=== PATIENT | female | born 1955 | race Caucasian/White ===

== ENCOUNTER 2021-04-13 12:58 | Emergency (ER) | payer MEDICARE, OTHER ==
[~2021-04-13] VITALS: Ht 168.9 cm; Wt 56.8 kg
[2021-04-13 13:00] VITALS: BP 155/89
[2021-04-13] MEDS ORDERED: LIDOCAINE 1%/EPI 1:100,000 10 ML VIAL. INJ ONE (13:30)
--- NOTE | 2021-04-13 14:05 | PHYS DOC ---
Past History Past Medical History: High Cholesterol, Hyperthyroid Additional Past Medical Histor: hot flashes (KALEN HARVEY APRN) Past Surgical History: Hysterectomy Additional Past Surgical Histo: hemmorhoidectomy (KALEN HARVEY APRN) Alcohol Use: Occasionally (KALEN HARVEY APRN) General Adult EDM: Chief Complaint: LACERATION/AVULSION HPI: HPI: Patient is a 65-year-old female presents with laceration to her right index finger after cutting her finger with hedge clippers. Bleeding is controlled. Patient has full range of motion. Denies being on blood thinners up-to-date on tetanus. Rating pain 5/10. Nuys taking anything prior to arrival for pain. P atient has history of hypothyroidism and hyperlipidemia. (KALEN HARVEY APRN) Review of Systems: Review of Systems: Constitutional: Denies fever or chills Eyes: Denies change in visual acuity HENT: Denies nasal congestion or sore throat Respiratory: Denies cough or shortness of breath Cardiovascular: Denies chest pain or edema GI: Denies abdominal pain, nausea, vomiting, bloody stools or diarrhea : Denies dysuria Musculoskeletal: Denies back pain or joint pain Integument: Laceration to right, index center. Neurologic: Denies headache, focal weakness or sensory changes Endocrine: Denies polyuria or polydipsia Lymphatic: Denies swollen glands Psychiatric: Denies depression or anxiety (KALEN HARVEY APRN) Current Medications: Current Meds: Current Medications Medications (Trade) Dose Ordered Sig/Beth Start Time Stop Time Status Last Admin Dose Admin Acetaminophen/ Hydrocodone Bitart (Lortab 5/325) 1 tab 1X ONCE 04/13/21 14:00 04/13/21 14:01 UNV Lidocaine/ Epinephrine (Xylocaine 1%-Epi 1:100,000) 10 ml 1X ONCE 04/13/21 13:30 04/13/21 13:31 DC (KALEN HARVEY APRN) Allergies: Allergies: Allergies Coded Allergies Type Severity Reaction Last Updated Verified Penicillins Allergy Mild Rash 04/13/21 Yes prednisone Allergy Unknown skin problem 04/13/21 Yes (KALEN HARVEY APRN) Physical Exam: PE: Constitutional: Well developed, well nourished, no acute distress, non-toxic appearance. [] HENT: Normocephalic, atraumatic, bilateral external ears normal, oropharynx moist, no oral exudates, nose normal. [] Eyes: PERRLA, EOMI, conjunctiva normal, no discharge. [] Neck: Normal range of motion, no tenderness, supple, no stridor. [] Cardiovascular:Heart rate regular rhythm, no murmur [] Lungs & Thorax: Bilateral breath sounds clear to auscultation [] Abdomen: Bowel sounds normal, soft, no tenderness, no masses, no pulsatile masses. [] Skin: Warm, dry, no erythema, no rash. [] Back: No tenderness, no CVA tenderness. [] Extremities: No tenderness, no cyanosis, no clubbing, ROM intact, no edema. [] Neurologic: Alert and oriented X 3, normal motor function, normal sensory function, no focal deficits noted. [] Psychologic: Affect normal, judgement normal, mood normal. [] (KALEN HARVEY APRN) Current Patient Data: Vital Signs: Vital Signs Date Time Temp Pulse Resp B/P (MAP) Pulse Ox O2 Delivery O2 Flow Rate FiO2 04/13/21 13:00 98.1 87 16 155/89 (111) 96 Room Air (KALEN HARVEY APRN) EKG: EKG: [] (KALEN HARVEY APRN) Radiology/Procedures: Radiology/Procedures: [] (KALEN HARVEY APRN) Heart Score: C/O Chest Pain: No Risk Factors: Risk Factors: DM, Current or recent (<one month) smoker, HTN, HLP, family history of CAD, obesity. Risk Scores: Score 0 - 3: 2.5% MACE over next 6 weeks - Discharge Home Score 4 - 6: 20.3% MACE over next 6 weeks - Admit for Clinical Observation Score 7 - 10: 72.7% MACE over next 6 weeks - Early Invasive Strategies (KALEN HARVEY APRN) Course & Med Decision Making: Course & Med Decision Making Pertinent Labs and Imaging studies reviewed. (See chart for details) [] 65-year-old female presents with a laceration to her right index finger after cutting with hedge clippers. Bleeding was controlled upon arrival. Hydrocodone 5/325 given for pain. Wound was cleansed. 1% lidocaine with epi used to numb finger. 3, sutures, 50, used to close wound. Patient tolerated procedure well. Instructions given on care. Patient will follow up with her P CP in 5 days to have sutures removed. Patient sent home with a prescription for Keflex. Discussed infection signs with patient. Ibuprofen and Tylenol at home for discomfort. Patient is appreciative and okay with discharge plan. (KALEN HARVEY APRN) Della Disclaimer: Della Disclaimer: This electronic medical record was generated, in whole or in part, using a voice recognition dictation system. (KALEN HARVEY APRN) Laceration Repair Lac Repair Indication: [] Laceration to right, index finger Procedure: The patient was placed in the appropriate position and anesthesia around the laceration. the area was then cleansed. The laceration was closed with 3 sutures, 50. The wound area was then dressed with gauze. Total repaired wound length: 2 cm The patient tolerated the procedure well Complications: No complications. (KALEN HARVEY APRN) Attending Co-Sign The patient was seen and interviewed as well as examined at the bedside. The chart was reviewed. The case was discussed. Agree with the plan of care. (LASHANDA WILSON DO) Departure Departure: Impression: Primary Impression: Laceration Disposition: HOME / SELF CARE / HOMELESS Condition: STABLE Referrals: ANDRES LLAMAS (PCP) Patient Instructions: Laceration Care, Adult, [id number] Additional Instructions: You were seen in the emergency room for a laceration to right index in your. Your wound was cleaned and repaired. Make sure you keep the area clean and dry. Please follow-up with your PCP in 5 days to have sutures removed. Return to the emergency room if you have worsening symptoms or concerns. EMERGENCY DEPARTMENT GENERAL DISCHARGE INSTRUCTIONS Thank you for coming to [facility] (ED) today and trusting us with you care. We trust that you had a positivie experience in our Emergency Department. If you wish to speak to the department management, you may call the director at . YOUR FOLLOW UP INSTRUCTIONS ARE FOLLOWS: 1. Do you have a private Doctor? If you do not have a private doctor, please ask for a resource list of physicians or clinics that may be able to assist you with follow up care. 2. The Emergency Physician has interpreted your x-rays. The X-Ray specialist will also review them. If there is a change in the findings, you will be notified in 48 hours when at all possible. 3. A lab test or culture has been done, your results will be reviewed and you will be notified if you need a change in treatment. ADDITIONAL INSTRUCTIONS AND INFORMATION: 1. Your care today has been supervised by a physician who is specially trained in emergency care. Many problems require more than one evaluation for a complete diagnosis and treatment. We recommend that you schedule your follow up appointment as recommended to ensure complete treatment of you illness or injury. If you are unable to obtain follow up care and continue to have a problem, or if your condition worsens, we recommend that you return to the ED. 2. We are not able to safely determine your condition over the phone nor are we able to give sound medical advice over the phone. For these safety reasons, if you call for medical advice we will ask you to come to the ED for further evaluation. 3. If you have any questions regarding these discharge instructions please call the ED at [phone]. SAFETY INFORMATION: In the interest of safety, wellness, and injury prevention; we encourage you to wear your sealbelt, if you smoke; quite smoking, and we encourage family to use a protective helmet for bicycling and other sporting events that present an increased risk for head injury. IF YOUR SYMPTOMS WORSEN OR NEW SYMPTOMS DEVELOP, OR YOU HAVE CONCERNS ABOUT YOUR CONDITION; OR IF YOUR CONDITION WORSENS WHILE YOU ARE WAITING FOR YOUR FOLLOW UP APPOINTMENT; EITHER CONTACT YOUR PRIMARY CARE DOCTOR, THE PHYSICIAN WHOSE NAME AND NUMBER YOU WERE GIVEN, OR RETURN TO THE ED IMMEDIATELY. Scripts Cephalexin (CEPHALEXIN) 500 Mg Tablet 1 TAB PO BID for laceration for 5 Days, #10 TAB Prov: KALEN HARVEY APRN 04/13/21 KALEN HARVEY APRN Apr 13, 2021 14:05 LASHANDA WILSON DO Apr 14, 2021 06:29
[2021-04-13] MEDS ORDERED: HYDROcodone/APAP 5/325MG 1 TAB TABLET PO ONE (14:15)
[2021-04-13] MEDS ORDERED: CEPH500T PO (15:07)
== END 2021-04-13 15:18 | disposition home or self-care (01) ==
LOC: ER 12:58
DX: S61.210A Laceration without foreign body of right index finger without damage to nail, initial encounter (principal); E78.5 Hyperlipidemia, unspecified; Z90.710 Acquired absence of both cervix and uterus; Z88.0 Allergy status to penicillin; Z88.6 Allergy status to analgesic agent; W26.8XXA Contact with other sharp object(s), not elsewhere classified, initial encounter; Y93.89 Activity, other specified; Y92.89 Other specified places as the place of occurrence of the external cause; Y99.8 Other external cause status
CPT/HCPCS: 12001; 99283-25

== ENCOUNTER 2021-11-10 17:18 | Emergency (ER) | payer MEDICARE, OTHER ==
[~2021-11-10] VITALS: Ht 168.9 cm; Wt 60.9 kg
[~2021-11-10 17:18] MED LIST: CEPH500T PO
--- NOTE | 2021-11-10 17:58 | EKG ---
[address] [address] Test Date: 2021-11-10 Test Time: 17:52:58 Pat Name: CHESTER GUTIÉRREZ Department: Room: Gender: F Press Supervisor: LAURA : 1955 Requested By: ROSALEE DOWNS Order Number: [id number] Reading MD: Measurements Intervals [place] Rate: 81 P: 38 NV: 140 QRS: -18 QRSD: 86 T: 43 QT: 364 QTc: 423 Interpretive Statements SINUS RHYTHM LEFTWARD AXIS OTHERWISE NORMAL ECG RI6.02 No previous ECG available for comparison
--- NOTE | 2021-11-10 18:06 | PHYS DOC ---
Past History Past Medical History: High Cholesterol, Hyperthyroid Additional Past Medical Histor: hot flashes (ROSALEE DOWNS APRN) Past Surgical History: Hysterectomy, Other Additional Past Surgical Histo: hemmorhoidectomy (ROSALEE DOWNS APRN) Alcohol Use: Occasionally (ROSALEE DOWNS APRN) General Adult EDM: Chief Complaint: ELBOW PROBLEM HPI: HPI: Patient is a 65-year-old female who presents to the emergency department for full complaints. She reports that she was moving a lot of furniture, new microwave and taking down her Sumit tree. She states that she woke up Thursday morning with pain in her right elbow. She states that she was driving with her to pick remover her daughter and Ganesh when she started feeling worsening of the pain in her right elbow. She also reports that she got sweaty and she pulled over on the side of the road. She reports that her hands felt like they got locked up and she started experiencing palpitations. She called the ambulance and they performed a EKG. She went to the nearest hospital and the palpitations resolved while waiting in the waiting room and she left AGAINST MEDICAL ADVICE. Patient reports that her right elbow pain has worsened and there is increased redness and swelling to the joint. She is also reporting that she had palpitations that started this afternoon but have resolved. She cannot estimate how long the palpitations usually last because the time does vary. She describes the pain in her elbow as a "on fire" sensation. She is not currently reporting any pain but reports that the pain is worse with movement. Patient has a history of high cholesterol and anxiety. She takes estrogen for hot flashes. She denies any history of leg swelling or DVTs or PEs. Patient denies chest pain, shortness of breath, fever, nausea, vomiting, dizziness, cough, IV lines, surgical procedures to her right arm, injuries. (ROSALEE DOWNS APRN) Review of Systems: Review of Systems: Constitutional: negative unless reported in HPI Eyes: negative unless reported in HPI HENT: negative unless reported in HPI Respiratory: negative unless reported in HPI Cardiovascular: negative unless reported in HPI GI: negative unless reported in HPI : negative unless reported in HPI Musculoskeletal: negative unless reported in HPI Integument: negative unless reported in HPI Neurologic: negative unless reported in HPI Endocrine: negative unless reported in HPI Lymphatic: negative unless reported in HPI Psychiatric: negative unless reported in HPI (ROSALEE DOWNS APRN) Allergies: Allergies: Allergies Coded Allergies Type Severity Reaction Last Updated Verified Penicillins Allergy Mild Rash 04/13/21 Yes prednisone Allergy Unknown skin problem 04/13/21 Yes (ROSALEE DOWNS APRN) Physical Exam: PE: Constitutional: Well developed, well nourished, no acute distress, non-toxic appearance. [] HENT: Normocephalic, atraumatic, bilateral external ears normal, oropharynx moist, no oral exudates, nose normal. [] Eyes: PERRL, EOMI, conjunctiva normal, no discharge. [] Neck: Normal range of motion, no stridor Cardiovascular:Heart rate regular rhythm, no murmur [] Lungs & Thorax: Bilateral breath sounds clear to auscultation [] Abdomen: Bowel sounds normal, soft, no tenderness, no masses, no pulsatile masses. [] Skin: Warm, dry, no erythema, no rash. [] Back: Normal range of motion Extremities: No tenderness, no cyanosis, no clubbing, ROM intact, no edema. [] Right elbow: Swelling redness and warmth noted to right elbow, range of motion intact, neuro intact, no open wounds Neurologic: Alert and oriented X 3, normal motor function, normal sensory function, no focal deficits noted. [] Psychologic: Affect normal, judgement normal, mood normal. [] (ROSALEE DOWNS APRN) Current Patient Data: Labs: Laboratory Tests Test 11/10/21 18:40 White Blood Count 6.1 x10^3/uL Red Blood Count 3.81 x10^6/uL Hemoglobin 12.5 g/dL Hematocrit 37.0 % Mean Corpuscular Volume 97 fL Mean Corpuscular Hemoglobin 33 pg Mean Corpuscular Hemoglobin Concent 34 g/dL Red Cell Distribution Width 12.7 % Platelet Count 263 x10^3/uL Neutrophils (%) (Auto) 55 % Lymphocytes (%) (Auto) 31 % Monocytes (%) (Auto) 12 % Eosinophils (%) (Auto) 1 % Basophils (%) (Auto) 1 % Neutrophils # (Auto) 3.3 x10^3uL Lymphocytes # (Auto) 1.9 x10^3/uL Monocytes # (Auto) 0.7 x10^3/uL Eosinophils # (Auto) 0.0 x10^3/uL Basophils # (Auto) 0.0 x10^3/uL D-Dimer (Myrna) 1.20 mg/L Urine Collection Type Clean catch Urine Color Yellow Urine Clarity Clear Urine pH 5.5 Urine Specific [place] >=1.030 Urine Protein 30 mg/dl Urine Glucose (UA) Neg mg/dL Urine Ketones (Stick) 15 mg/dL Urine Blood Neg Urine Nitrite Neg Urine Bilirubin Small Urine Urobilinogen Dipstick 1.0 mg/dL Urine Leukocyte Esterase Trace Urine RBC 0 /HPF Urine WBC 5-10 /HPF Urine Squamous Epithelial Cells Few /LPF Urine Bacteria Few /HPF Sodium Level 140 mmol/L Potassium Level 3.9 mmol/L Chloride Level 101 mmol/L Carbon Dioxide Level 29 mmol/L Anion Gap 10 Blood Urea Nitrogen 12 mg/dL Creatinine 0.8 mg/dL Estimated GFR (Cockcroft-Gault) 71.8 BUN/Creatinine Ratio 15 Glucose Level 83 mg/dL Calcium Level 9.0 mg/dL Total Bilirubin 0.3 mg/dL Aspartate Amino Transf (AST/SGOT) 25 U/L Alanine Aminotransferase (ALT/SGPT) 37 U/L Alkaline Phosphatase 70 U/L Troponin I High Sensitivity 5 ng/L Total Protein 7.4 g/dL Albumin 4.0 g/dL Albumin/Globulin Ratio 1.2 Urine Opiates Screen Neg Urine Methadone Screen Neg Urine Barbiturates Neg Urine Phencyclidine Screen Neg Urine Amphetamine/Methamphetamine Neg Urine Benzodiazepines Screen Neg Urine Cocaine Screen Neg Urine Cannabinoids Screen Neg Urine Ethyl Alcohol Neg Current Medications Medications (Trade) Dose Ordered Sig/Beth Route PRN Reason Start Time Stop Time Status Last Admin Dose Admin Iohexol (Omnipaque 350 Mg/ml) 100 ml 1X ONCE IV 11/10/21 20:30 11/10/21 20:31 DC 11/10/21 20:54 (ROSALEE DOWNS APRN) EKG: EKG: EKG performed by ER staff at 1752 shows sinus rhythm with a rate of 81, QTc of 423, no STEMI read by Dr. Betts. [] (ROSALEE DOWNS APRN) Radiology/Procedures: Radiology/Procedures: []PROCEDURE: CT ANGIOGRAPHY CHEST Study: CT CHEST WITH CONTRAST - PULMONARY ANGIOGRAM History: Chest pain, palpitations Comparison: Chest radiograph 11/10/2021 Technique: Helical CT of the chest performed after the administration of 100 mL Omnipaque 350 intravenous contrast and timed for angiographic evaluation of the pulmonary arteries per PE protocol. Coronal and sagittal 3D MIP reformations were obtained. One or more of the following individualized dose reduction techniques were utilized for this examination: 1. Automated exposure control 2. Adjustment of the mA and/or kV according to patient size 3. Use of iterative reconstruction technique. Findings: Pulmonary Arteries: Contrast bolus is adequate. There is no acute pulmonary embolism. Heart/Systemic Vasculature: The heart is normal in size. No pericardial effusion. Thoracic aorta is normal in caliber. No aortic dissection. Mediastinum: No lymphadenopathy. Lungs: The lungs are clear. No pleural effusion or pneumothorax. Central airways are clear. Neck/Axilla/Body Wall: No axillary lymphadenopathy. There is a calcification in the left thyroid lobe. Upper Abdomen: Liver is diffusely decreased in attenuation. Bones: No acute osseous abnormality. IMPRESSION: 1. No acute pulmonary embolism. 2. Hepatic steatosis. Electronically signed by: Jazmin Mai MD (11/10/2021 9:32 PM) [id number] DICTATED AND SIGNED BY: JAZMIN MAI MD DATE: 11/10/212117 CC: ROSALEE DOWNS APRN; ANDRES LLAMAS L ~MTH0 0 PROCEDURE: ELBOW RIGHT 3V Chest AP portable at 1804: Reason for examination: Chest pain. Feels like heart skips a beat. Heart size is normal. Mediastinum is unremarkable. Lung chavarria are clear. No acute bony abnormalities are seen. IMPRESSION: No acute cardiopulmonary disease evident. Right elbow 3 views: Reason for examination: Right elbow pain and swelling with tightness. No acute fracture or dislocation is seen. The bone density is normal. No abnormal periosteal reaction is seen. Joint spaces are maintained. No joint effusion is evident. IMPRESSION: No acute abnormality evident at the right elbow. Electronically signed by: Le Mccain MD (11/10/2021 6:20 PM) [facility] DICTATED AND SIGNED BY: LE MCCAIN MD DATE: 11/10/211817 CC: ROSALEE DOWNS APRN; ANDRES LLAMAS L ~MTH0 0 PROCEDURE: PORTABLE CHEST 1V Chest AP portable at 1804: Reason for examination: Chest pain. Feels like heart skips a beat. Heart size is normal. Mediastinum is unremarkable. Lung chavarria are clear. No acute bony abnormalities are seen. IMPRESSION: No acute cardiopulmonary disease evident. Right elbow 3 views: Reason for examination: Right elbow pain and swelling with tightness. No acute fracture or dislocation is seen. The bone density is normal. No abnormal periosteal reaction is seen. Joint spaces are maintained. No joint effusion is evident. IMPRESSION: No acute abnormality evident at the right elbow. Electronically signed by: Le Mccain MD (11/10/2021 6:20 PM) [facility] DICTATED AND SIGNED BY: LE MCCAIN MD DATE: 11/10/211817 CC: ROSALEE DOWNS APRN; MURIELANDRES Faraz ~MTH0 0 (ROSALEE DOWNS APRN) Heart Score: C/O Chest Pain: No Risk Factors: Risk Factors: DM, Current or recent (<one month) smoker, HTN, HLP, family history of CAD, obesity. Risk Scores: Score 0 - 3: 2.5% MACE over next 6 weeks - Discharge Home Score 4 - 6: 20.3% MACE over next 6 weeks - Admit for Clinical Observation Score 7 - 10: 72.7% MACE over next 6 weeks - Early Invasive Strategies (ROSALEE DOWNS APRN) Course & Med Decision Making: Course & Med Decision Making Pertinent Labs and Imaging studies reviewed. (See chart for details) [] Patient presents to the emergency department for multiple complaints. Patient is reporting right elbow pain, redness and swelling that started Thursday following moving several heavy objects. She denies any wounds or insect bites. She is not currently reporting any pain. She denies any history of DVT or PE, leg swelling. She does have a history of high cholesterol and does take estrogen for hot flashes. Patient is also reporting palpitations that have been intermittent for the last 3 days. She is not currently experiencing any palpitations. She is not having any chest pain, shortness of breath, nausea, vomiting, dizziness. Work-up in the ER consisted of blood work, EKG, chest x- ray and x-ray of right elbow. CBC, CMP, troponin, UDS were negative. Imaging of chest, elbow negative. Patient had an elevated D-dimer therefore CTA was performed. CTA was negative for any pulmonary embolism. Urinalysis did show a urinary tract infection and patient will be treated with an antibiotic. Due to the appearance of the right elbow with redness, warmth, swelling patient will be treated for cellulitis. Patient continues to be free of palpitations, shortness of breath, chest pain, dizziness, nausea, vomiting. Patient advised to follow-up with primary care provider. I discussed with patient all findings and diagnostic testing as well as the need to follow-up with PCP for further evaluation and treatment or return to the ER if any new or worsening symptoms. Strict return precautions were also discussed at length. Patient voiced understanding and agreement with the plan. Patient is hemodynamically stable at the time of disposition. (ROSALEE DOWNS APRN) Dragon Disclaimer: Dragon Disclaimer: This electronic medical record was generated, in whole or in part, using a voice recognition dictation system. (ROSALEE DOWNS APRN) Departure Departure: Impression: Primary Impression: Palpitations Additional Impressions: Urinary tract infection Qualified Codes: N30.00 - Acute cystitis without hematuria Cellulitis Qualified Codes: L03.113 - Cellulitis of right upper limb Disposition: HOME / SELF CARE / HOMELESS Condition: GOOD Referrals: ANDRES LLAMAS (PCP) Patient Instructions: Cellulitis, [id number], Palpitations, [id number], Urinary Tract Infection Additional Instructions: You were seen in the emergency department today for palpitations as well as swelling and pain to your right elbow. X-ray was performed of your chest and right elbow that showed no acute findings. The CT scan of your chest to rule out a blood clot in your lungs showed no acute findings. Your blood work was unremarkable. Your urine did show a urinary tract infection. This will be treated with an antibiotic. Please start and finish the antibiotic completely. Increase your fluids and avoid any bladder irritants like caffeine, sugary beverages, and alcohol. It is possible that the redness, warmth and swelling to your right elbow is cellulitic or skin infection this should be treated with the same antibiotic that we will treat your urinary tract infection. Take tylenol and ibuprofen for pain. If the redness/warmth/swelling does not improve after a couple of days of the antibiotic, make sure that you follow up with your PCP to rule out inflammed joint disorder like RA. Please follow-up with your primary care provider tomorrow regarding your ER visit. Return to the emergency department if your palpitations return or you develop chest pain, shortness of breath, nausea, vomiting, dizziness, high fevers refractory to treatment, abdominal pain, decreased range of motion or decreased sensation in your arm, severe back pain or any new or worsening concerns. Scripts Cephalexin (KEFLEX) 500 Mg Capsule 1 CAP PO QID for infection for 7 Days, #28 CAP 0 Refills Prov: ROSALEE DOWNS APRN 11/10/21 Attending Signature Attending Signature I have participated in the care of this patient and I have reviewed and agree with all pertinent clinical information above including history, exam, and rec ommendations. (ROSANGELA GUZMAN MD) Attending Signature Attending Signature I have participated in the care of this patient and I have reviewed and agree with all pertinent clinical information above including history, exam, and recommendations. (ROSANGELA GUZMAN MD) ROSALEE DOWNS APRN Nov 10, 2021 18:06 ROSANGELA GUZMAN MD Nov 11, 2021 01:52
--- NOTE | 2021-11-10 18:22 | RAD ---
Chest AP portable at 1804: Reason for examination: Chest pain. Feels like heart skips a beat. Heart size is normal. Mediastinum is unremarkable. Lung chavarria are clear. No acute bony abnormalities are seen. IMPRESSION: No acute cardiopulmonary disease evident. Right elbow 3 views: Reason for examination: Right elbow pain and swelling with tightness. No acute fracture or dislocation is seen. The bone density is normal. No abnormal periosteal reaction is seen. Joint spaces are maintained. No joint effusion is evident. IMPRESSION: No acute abnormality evident at the right elbow. Electronically signed by: Trinidad Shoemaker MD (11/10/2021 6:20 PM) [facility]
[2021-11-10 19:16] LABS: BASO % 1 % (0-3); EOS % 1 % (0-3); HEMOGLOBIN 12.5 g/dL (12.0-15.5); LYMPH # 1.9 x10^3/uL (1.0-4.8); LYMPH % 31 % (24-48); MEAN CORPUSCULAR HEMOGLOBIN 33 pg (25-35); MEAN CORPUSCULAR HGB CONC 34 g/dL (31-37); MEAN CORPUSCULAR VOLUME 97 fL (79-100); MONO # 0.7 x10^3/uL (0.0-1.1); MONO % 12 % (0-9); NEUT # 3.3 x10^3uL (1.8-7.7); NEUT % 55 % (31-73); PLATELET COUNT 263 x10^3/uL (140-400); RED BLOOD COUNT 3.81 x10^6/uL (3.50-5.40); RED CELL DISTRIBUTION WIDTH 12.7 % (11.5-14.5); WHITE BLOOD COUNT 6.1 x10^3/uL (4.0-11.0)
[2021-11-10 19:26] LABS: CREATININE 0.8 mg/dL (0.6-1.0); GFR 71.8; POTASSIUM 3.9 mmol/L (3.5-5.1)
[2021-11-10 19:34] LABS: ALBUMIN/GLOBULIN RATIO 1.2 (1.0-1.7); BARBITURATES NEG (NEG); BENZODIAZEPINES NEG (NEG); CANNABINOIDS NEG (NEG); COCAINE NEG (NEG); METHADONE NEG (NEG); OPIATES NEG (NEG); PHENCYCLIDINE NEG (NEG); TOTAL BILIRUBIN 0.3 mg/dL (0.2-1.0); TOTAL PROTEIN 7.4 g/dL (6.4-8.2)
[2021-11-10 19:35] LABS: AMPHETAMINE/METHAMPHETAMINE NEG (NEG)
[2021-11-10 19:57] LABS: BACTERIA,URINE FEW /HPF (0-FEW); BILIRUBIN,URINE SMALL (NEG); CLARITY,URINE CLEAR; COLOR,URINE YELLOW; GLUCOSE,URINE NEG (NEG); NITRITE,URINE NEG (NEG); RBC,URINE 0 /HPF (0-2); SQUAMOUS EPITHELIAL CELL,UR FEW /LPF
[2021-11-10] MEDS ORDERED: IOHEXOL 350 MG/ML 100 ML VIAL. IV ONE (20:30)
--- NOTE | 2021-11-10 21:34 | RAD ---
Study: CT CHEST WITH CONTRAST - PULMONARY ANGIOGRAM History: Chest pain, palpitations Comparison: Chest radiograph 11/10/2021 Technique: Helical CT of the chest performed after the administration of 100 mL Omnipaque 350 intrav enous contrast and timed for angiographic evaluation of the pulmonary arteries per PE protocol. Coron al and sagittal 3D MIP reformations were obtained. One or more of the following individualized dose reduction techniques were utilized for this examinat ion: 1. Automated exposure control 2. Adjustment of the mA and/or kV according to patient size 3. Use of iterative reconstruction technique. Findings: Pulmonary Arteries: Contrast bolus is adequate. There is no acute pulmonary embolism. Heart/Systemic Vasculature: The heart is normal in size. No pericardial effusion. Thoracic aorta is n ormal in caliber. No aortic dissection. Mediastinum: No lymphadenopathy. Lungs: The lungs are clear. No pleural effusion or pneumothorax. Central airways are clear. Neck/Axilla/Body Wall: No axillary lymphadenopathy. There is a calcification in the left thyroid lobe . Upper Abdomen: Liver is diffusely decreased in attenuation. Bones: No acute osseous abnormality. IMPRESSION: 1. No acute pulmonary embolism. 2. Hepatic steatosis. Electronically signed by: Jazmin Mai MD (11/10/2021 9:32 PM) [id number]
[2021-11-10] MEDS ORDERED: CEPH500C PO (21:46)
[2021-11-10 21:56] VITALS: BP 128/80
[2021-11-10] MEDS ORDERED: CEPHALEXIN 250 MG CAPSULE PO ONE (22:30)
== END 2021-11-10 21:58 | disposition home or self-care (01) ==
LOC: ER 17:18
DX: L03.113 Cellulitis of right upper limb (principal); N30.00 Acute cystitis without hematuria; R00.2 Palpitations; E78.00 Pure hypercholesterolemia, unspecified; E05.90 Thyrotoxicosis, unspecified without thyrotoxic crisis or storm; Z88.0 Allergy status to penicillin; Z88.8 Allergy status to other drugs, medicaments and biological substances
CPT/HCPCS: 36415; 71045; 71275; 73080; 80053; 80307; 81001; 84484; 85025; 85379; 87086; 93005; 99285; Q9967